=== PATIENT | male | born 1965 | race Two or more races ===

== ENCOUNTER 2017-01-27 11:51 | Emergency (ER) | payer MEDICAID, OTHER ==
[~2017-01-27] VITALS: Ht 172.7 cm; Wt 72.6 kg
[~2017-01-27 11:51] MED LIST: Nitroglycerin 2% oint pkt TOPIC ONE
[2017-01-27] MEDS ORDERED: Famotidine 20 MG/ 2ML VIAL IVP ONE (12:00)
--- NOTE | 2017-01-27 12:20 | Emergency Room Report ---
History of Present Illness General Chief Complaint: Vomiting Source: Patient, EMS Present Illness HPI Patient brought in for vomiting. Apparently was in a car at the person's house where he is staying. He denies vomiting any blood. It is an epigastric pain is radiating towards his back. He is unclear as to how long this has been going on. He denies any alcohol and is not vomiting blood. He has been moving his bowels without difficulty. No fevers, chest pain, dyspnea. There is some suggestion of treatment for some heart condition. Also he states there was treatment of his head. Denies headache. Some generalized weakness. (See hospital course.) Allergies: Coded Allergies: No Known Allergies (Unverified , 01/27/17) Patient History Past Medical History: see triage record Past Surgical History: other - craniotomy Social History: Denies: alcohol use, drug use Social History Narrative lives in car Reviewed Nursing Documentation: PMH: Agreed, PSxH: Agreed Review of Systems All Other Systems: negative except mentioned in HPI - difficult historian Physical Exam Vital Signs Date Time Temp Pulse Resp B/P Pulse Ox O2 Delivery O2 Flow Rate FiO2 01/27/17 11:50 98.1 74 16 155/98 100 Room Air Sp02 EP Interpretation: reviewed, normal General Appearance: well appearing, no apparent distress, other - GCS 14 Head: normocephalic, other - craniotomy scar Eyes: bilateral eye EOMI, bilateral eye PERRL, bilateral eye normal inspection ENT: moist mucus membranes Neck: supple, no bony tend Respiratory: lungs clear, normal breath sounds Cardiovascular #1: regular rate, rhythm Cardiovascular #2: 2+ radial (R) Gastrointestinal: normal inspection, normal bowel sounds, non tender, no mass, non-distended Musculoskeletal: back normal, normal range of motion, no calf tenderness Neurologic: alert, motor strength/tone normal, sensory intact, normal gait, speech normal, other - F to N and Heal to sanchez ataxic on L, oriented - X2 Psychiatric: depressed affect Reflexes: 2+ knee (R), 3+ knee (L) Skin: normal inspection, warm/dry, other - old scar R occiput Medical Decision Making Diagnostic Impression: Primary Impression: Intracerebral hemorrhage Additional Impressions: Possible cerebellar mass Vomiting Qualified Codes: R11.2 - Nausea with vomiting, unspecified Left bundle branch block ER Course The patient presents with vomiting and epigastric pain. The patient denies any chest pain. Differential includes gastritis, peptic ulcer disease, pancreatitis , GERD. As excluded for acute myocardial infarction and an EKG will be obtained. In addition electrolytes, lipase will also be obtained as well as chest x-ray and abdominal film. Patient be treated with Pepcid and said Zofran. EKG with LBBB but unusual suspicious for STEMI. Patient with prior cor problems. Unable to say if BBB is new. Sent to [facility]. Presented at 12:15. 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 Suggested observation and re-present if + troponin. Aspirin and nitrates ordered. Labs unremarkable. Patient improved without further vomiting. Strange and depressed affect but improved. Patient unstable gait. Admit med. CT ordered. Repeat episode of vomiting. Zofran repeated. Possible bleed and old craniotomy with cerebellar -possible infarct. Keppra and decadron given. Discussed with Dr. Holloway, [facility] - accept patient in transfer. 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 Has some chronic unsteadiness of gait, but worsened. Transfer to [facility] ALS. Laboratory Tests Test 01/27/17 12:09 01/27/17 12:50 White Blood Count 8.6 K/UL (4.8-10.8) Red Blood Count 5.13 M/UL (4.70-6.10) Hemoglobin 15.7 G/DL (14.2-18.0) Hematocrit 47.2 % (42.0-52.0) Mean Corpuscular Volume 92 FL (80-99) Mean Corpuscular Hemoglobin 30.6 PG (27.0-31.0) Mean Corpuscular Hemoglobin Concent 33.3 G/DL (32.0-36.0) Red Cell Distribution Width 11.9 % (11.6-14.8) Platelet Count 301 K/UL (150-450) Mean Platelet Volume 6.6 FL (6.5-10.1) Neutrophils (%) (Auto) 80.9 % (45.0-75.0) H Lymphocytes (%) (Auto) 12.4 % (20.0-45.0) L Monocytes (%) (Auto) 6.0 % (1.0-10.0) Eosinophils (%) (Auto) 0.1 % (0.0-3.0) Basophils (%) (Auto) 0.5 % (0.0-2.0) Prothrombin Time 10.6 SEC (9.30-11.50) Prothrombin Time INR 1.0 (0.9-1.1) PTT 23 SEC (23-33) Sodium Level 138 mEQ/L (135-145) Potassium Level 3.7 mEQ/L (3.4-4.9) Chloride Level 97 mEQ/L (98-107) L Carbon Dioxide Level 25 mEQ/L (20-30) Anion Gap 16 (5-15) H Blood Urea Nitrogen 19 mg/dL (7-23) Creatinine 0.8 mg/dL (0.7-1.2) Estimate Glomerular Filtration Rate > 60 mL/min (>60) Glucose Level 131 mg/dL (74-106) H Calcium Level 9.3 mg/dL (8.6-10.2) Total Bilirubin 0.6 mg/dL (0.0-1.2) Aspartate Amino Transferase (AST) 26 U/L (5-40) Alanine Aminotransferase (ALT) 19 U/L (3-41) Alkaline Phosphatase 82 U/L (40-129) Total Creatine Kinase 234 U/L (38-174) H Troponin I < 0.30 ng/mL (<=0.30) Total Protein 7.0 g/dL (6.6-8.7) Albumin 4.5 g/dL (3.5-5.2) Globulin 2.5 g/dL Albumin/Globulin Ratio 1.8 (1.0-2.7) Lipase 19 U/L (< 60) Serum Alcohol < 10 mg/dL Urine Color Pale yellow Urine Appearance Clear Urine pH 9 (4.5-8.0) Urine Specific Stuart 1.015 (1.005-1.035) Urine Protein 1+ (NEGATIVE) H Urine Glucose (UA) Negative (NEGATIVE) Urine Ketones 1+ (NEGATIVE) H Urine Occult Blood Negative (NEGATIVE) Urine Nitrite Negative (NEGATIVE) Urine Bilirubin Negative (NEGATIVE) Urine Urobilinogen Normal MG/DL (0.0-1.0) Urine Leukocyte Esterase 1+ (NEGATIVE) H Urine RBC 0-2 /HPF (0 - 0) H Urine WBC 0-2 /HPF (0 - 0) Urine Squamous Epithelial Cells Occasional /LPF Urine Amorphous Sediment Few /LPF (NONE) H Urine Bacteria Few /HPF (NONE) Urine Opiates Screen Negative (NEGATIVE) Urine Barbiturates Screen Negative (NEGATIVE) Phencyclidine (PCP) Screen Negative (NEGATIVE) Urine Amphetamines Screen Negative (NEGATIVE) Urine Benzodiazepines Screen Negative (NEGATIVE) Urine Cocaine Screen Negative (NEGATIVE) Urine Marijuana (THC) Screen Negative (NEGATIVE) EKG Diagnostic Results Rate: normal Rhythm: NSR ST Segments: other - LBBB with possible STEMI - sent to [facility] Rhythm Strip Diag. Results EP Interpretation: yes Rhythm: NSR, no PVC's, no ectopy Other X-Ray Diagnostic Results Other X-Ray Diagnostic Results : X-Ray Ordered: abd Findings: other - NSBGP, no mass, large stomache bubble Number of Views: 1 CT/MRI/US Diagnostic Results CT/MRI/US Diagnostic Results : Imaging Test Ordered: head Impression possible L temporal lobe bleed and R cerebellar infarct (prior craniotomy). Status: improved Disposition: XFER T-[facility] - [facility] higher level of care Condition: Serious - but stable for transfer Silas Duarte M.D. Jan 27, 2017 12:20
[2017-01-27] MEDS ORDERED: Nitroglycerin 2% oint pkt TOPIC ONE (12:30)
[2017-01-27 12:31] LABS: BASOPHILS % (AUTO) 0.5 % (0.0-2.0); EOSINOPHILS % (AUTO) 0.1 % (0.0-3.0); LYMPHOCYTES % (AUTO) 12.4 % (20.0-45.0); MEAN CORPUSCULAR HEMOGLOBIN 30.6 PG (27.0-31.0); MEAN CORPUSCULAR HGB CONC 33.3 G/DL (32.0-36.0); MEAN CORPUSCULAR VOLUME 92 FL (80-99); MEAN PLATELET VOLUME 6.6 FL (6.5-10.1); NEUTROPHILS % (AUTO) 80.9 % (45.0-75.0); PLATELET COUNT 301 K/UL (150-450); RED BLOOD COUNT 5.13 M/UL (4.70-6.10); RED CELL DISTRIBUTION WIDTH 11.9 % (11.6-14.8); WHITE BLOOD COUNT 8.6 K/UL (4.8-10.8)
[2017-01-27 12:42] LABS: PROTHROMBIN TIME 10.6 SEC (9.30-11.50)
[2017-01-27 12:57] LABS: ALANINE AMINOTRANSFERASE 19 U/L (3-41); ALBUMIN/GLOBULIN RATIO 1.8 (1.0-2.7); ALCOHOL < 10 mg/dL; ANION GAP 16 (5-15); ASPARTATE AMINO TRANSFERASE 26 U/L (5-40); CALCIUM 9.3 mg/dL (8.6-10.2); CARBON DIOXIDE 25 mEQ/L (20-30); CHLORIDE 97 mEQ/L (98-107); CREATININE 0.8 mg/dL (0.7-1.2); GLOMERULAR FILTRATION RATE > 60 mL/min (>60); HEMOLYSIS 9; LIPASE 19 U/L (< 60); POTASSIUM 3.7 mEQ/L (3.4-4.9); SODIUM 138 mEQ/L (135-145); TROPONIN I < 0.30 ng/mL (<=0.30)
[2017-01-27 13:14] LABS: APPEARANCE,URINE CLEAR; KETONES,URINE 1+ (NEGATIVE); LEUKOCYTE ESTERASE ,URINE 1+ (NEGATIVE); NITRITE,URINE NEGATIVE (NEGATIVE); PH,URINE 9 (4.5-8.0); PROTEIN,URINE 1+ (NEGATIVE); UROBILINOGEN,URINE NORMAL MG/DL (0.0-1.0)
[2017-01-27 13:22] LABS: AMORPHOUS SEDIMENT,UR FEW /LPF; BACTERIA,URINE FEW /HPF; RBC,URINE 0-2 /HPF (0 - 0); SQUAMOUS EPITHELIAL CELL,UR OCCASIONAL /LPF (NONE/OCC); WBC,URINE 0-2 /HPF (0 - 0)
[2017-01-27] MEDS ORDERED: Thiamine HCl 100mg/ml Inj ONE (14:53)
[2017-01-27 15:18] VITALS: BP 134/85
[2017-01-27] MEDS ORDERED: TYLENOL325 MG ORAL (15:39)
[2017-01-27] MEDS ORDERED: PEPCID20 MG ORAL (15:39)
[2017-01-27] MEDS ORDERED: ZOFRAN ODT4 MG ORAL (15:39)
[2017-01-27] MEDS ORDERED: levETIRAcetam 500mg vial IV ONE (15:49)
[2017-01-27] MEDS ORDERED: Thiamine HCl 100 MG in D5W 55 ML IVPB STA (16:53)
[2017-01-27 17:18] VITALS: BP 130/78
[2017-01-27] MEDS ORDERED: Dexamethasone 4mg/ml vial IVP ONE (17:45)
[2017-01-27] MEDS ORDERED: levETIRAcetam 500 MG in D5W 110 ML IVPB ONE (17:45)
[2017-01-27 20:09] VITALS: BP 140/74
[2017-01-27 20:32] VITALS: BP 140/74
--- NOTE | 2017-01-28 09:16 | Diagnostic Imaging Report ---
Indications: Headache, weakness Technique: Spiral acquisitions obtained through the brain. Angled axial and coronal 5 x 5 mm slices were reconstructed. Total dose length product 1270 mGycm. CTDI vol(s) 70 mGy Comparison: None Findings: There is evidence of prior right occipital craniectomy. There is underlying encephalomalacia of the right cerebellar hemisphere. There is a focus of calcification or, less likely, hemorrhage measuring 5 mm diameter in the left posterior frontal peoples-white junction. There is extensive white matter low-attenuation diffusely throughout the cerebrum and cerebellum. There is minimal enlargement of the ventricles and extra axial CSF spaces. No mass effect or midline shift. The calvarium is intact. The sinuses are unremarkable. Impression: 5 mm focus of calcification versus hemorrhage in the left posterior frontal lobe. MRI may be useful to clarify. Alternatively, comparison with any prior outside images may be available would be useful Extensive diffuse white matter low-attenuation, advanced for age. Nonspecific, could indicate demyelinating disease, other leukoencephalopathies, ischemic change Evidence of prior right occipital craniectomy. Underlying right several hemispheric encephalomalacia, likely related to the above. Correlate with clinical and surgical history This agrees with the preliminary interpretation provided overnight by Dr. Hines The CT scanner at [facility] is accredited by the [employer] and the scans are performed using protocols designed to limit radiation exposure to as low as reasonably achievable to attain images of sufficient resolution adequate for diagnostic evaluation.
--- NOTE | 2017-01-28 10:16 | Diagnostic Imaging Report ---
Indication: Abdominal pain Technique: Supine view of the abdomen Comparison: none Findings: Bowel gas pattern is unremarkable. No unusual masses or calcifications Impression: Negative This agrees with the preliminary interpretation provided by the emergency room physician
--- NOTE | 2017-01-28 19:50 | Cardiology Report ---
APPROVED REPORT EKG Measurement Heart [id number] MD [id number] Normal sinus rhythm Left bundle branch block Abnormal ECG
== END 2017-01-27 20:41 | disposition short-term general hospital (02) ==
LOC: EDBD 11:51 → EMR 13:16
DX: I61.9 Nontraumatic intracerebral hemorrhage, unspecified (principal); R11.10 Vomiting, unspecified; R10.13 Epigastric pain; I44.7 Left bundle-branch block, unspecified; Z98.890 Other specified postprocedural states; G93.89 Other specified disorders of brain; R26.9 Unspecified abnormalities of gait and mobility
CPT/HCPCS: 36415; 70450; 74000; 80053; 80300; 80329; 81003; 82550; 83690; 84484; 85025; 85610; 85730; 93005; 96360; 96374; 96375; 99285; J1100; J1953; J2405; S0028; 96372; 99283